=== PATIENT | female | born 1985 | race African-American/Black ===

== ENCOUNTER 2018-01-03 19:28 | Emergency (ER) | END 2018-01-03 19:44 | disposition left against medical advice (07) | LOC: ERS 19:28 | DX: Z53.21 Procedure and treatment not carried out due to patient leaving prior to being seen by health care provider (principal) ==

== ENCOUNTER 2018-01-03 20:06 | Emergency (ER) | payer SELFPAY | END 2018-01-03 21:02 | disposition home or self-care (01) | LOC: SCSER 20:06 | DX: L03.115 Cellulitis of right lower limb (principal); L02.435 Carbuncle of right lower limb; I10 Essential (primary) hypertension; J45.909 Unspecified asthma, uncomplicated | CPT/HCPCS: 99282 ==

== ENCOUNTER 2018-02-11 14:44 | Emergency (ER) | payer SELFPAY | END 2018-02-11 15:38 | disposition home or self-care (01) | LOC: ERS 14:44 | DX: M25.512 Pain in left shoulder (principal); I10 Essential (primary) hypertension; J45.909 Unspecified asthma, uncomplicated; X58.XXXA Exposure to other specified factors, initial encounter | CPT/HCPCS: 99283 ==

== ENCOUNTER 2018-02-28 20:34 | Emergency (ER) | payer MEDICAID, OTHER, SELFPAY ==
[2018-02-28] MEDS ORDERED: Ondansetron PF 4 MG/2 ML Vial ONE (21:08)
[2018-02-28] MEDS ORDERED: Dicyclomine 20 MG TAB ONE (21:08)
[2018-02-28 21:28] LABS: #Eosinphils 0.1 thou/uL (0.0-0.7); #Lymphocytes 1.9 thou/uL (1.20-3.40); #Monocytes 0.7 thou/uL (0.11-0.59); %Basophils 0.5 % (0.0-1.0); %Eosinophils 1.1 % (0.0-10.0); %Lymphocytes 22.1 % (21.0-51.0); %Monocytes 7.5 % (0.0-10.0); %Neutrophils 68.9 % (42.0-75.0); Hemoglobin 14.7 g/dL (12.0-16.0); Mean Corpuscular HGB CONC 33.3 g/dL (32.0-36.0); Mean Corpuscular Hemoglobin 28.5 pg (27.0-31.0); Mean Corpuscular Volume 85.6 fL (78.0-98.0); Mean Platelet Volume 8.8 fL (7.4-10.4); Platelet Count 335 thou/uL (130-400); RBC Distribution Width 12.7 % (11.5-14.5); Red Blood Cell (RBC) Count 5.17 mill/uL (4.20-5.40); White Blood Cell (WBC) Count 8.7 thou/uL (4.8-10.8)
[2018-02-28 21:49] LABS: ALT (SGPT) 26 U/L (8-55); AST (SGOT) 17 U/L (5-34); Albumin 4.7 g/dL (3.5-5.0); Alkaline Phosphatase 83 U/L (40-150); Anion Gap 11 mmol/L (10-20); BUN (Urea Nitrogen) 12 mg/dL (7.0-18.7); Bilirubin, Total 0.5 mg/dL (0.2-1.2); Calc. Creatinine Clearance 0 mL/min (70-130); Calcium 9.9 mg/dL (7.8-10.44); Carbon Dioxide 19 mmol/L (22-29); Chloride 107 mmol/L (98-107); Estimated GFR-MDRD 86; Globulin 4.3 g/dL (2.4-3.5); Glucose 115 mg/dL (70-105); Lipase 19 U/L (8-78); Potassium 3.9 mmol/L (3.5-5.1); Sodium 133 mmol/L (136-145)
[2018-02-28 22:24] LABS: Bilirubin Negative (Negative); Blood, Urine Small (Negative); Clarity CLEAR (Clear); Glucose, Urine (Dipstick) Negative (Negative); Leukocyte Negative (Negative); Nitrite Negative (Negative); Protein, Urine (Dipstick) 30 mg/dL (Neg-Trace); Specific Gravity, Urine 1.029 (1.002-1.036); Urobilinogen 0.2 mg/dL (0.2-1.0); pH, Urine 5.5 (5.0-9.0)
[2018-02-28 22:25] LABS: Pregnancy Test - Urine (BHCG) Negative (Negative); Pregu Control Background? CLEAR/WHITE (CLR/WHITE); Pregu Control Bar Appear? YES (CONTROL BAR); Specific Gravity 1.029 (1.002-1.036)
[2018-02-28 22:26] LABS: Bacteria/HPF None Seen HPF (None Seen); Hyaline Casts/LPF 7-10 HYALINE CAST LPF (0-3 Hyaline); Pathc Cast-AUWi Flag 1.74 (0-2.49); RBC/HPF 0-3 HPF (0-3)
--- NOTE | 2018-03-01 00:20 | RAD ---
CHEST TWO VIEWS: INDICATIONS: Chest pain. COMPARISON: None. FINDINGS: The lungs are clear. The cardiomediastinal silhouette is within normal limits. No acute osseous abn ormality is evident. IMPRESSION: No acute cardiopulmonary abnormality. POS: [facility]
--- NOTE | 2018-03-06 13:25 | EKG ---
Test Reason : Blood Pressure : / mmHG Vent. Rate : 084 BPM Atrial Rate : 084 BPM P-R Int : 146 ms QRS Dur : 080 ms QT Int : 348 ms P-R-T Axes : 061 039 014 degrees QTc Int : 411 ms Normal sinus rhythm Normal ECG Confirmed by EDIL PEPE ([id number]), editorial clerk SHARRI CERVANTES ([id number] on 03/06/2018 1:25:17 PM Referred By: Confirmed By:EDIL PEPE
== END 2018-02-28 23:43 | disposition home or self-care (01) ==
LOC: ERS 20:34
DX: R07.89 Other chest pain (principal); I10 Essential (primary) hypertension; R19.7 Diarrhea, unspecified; J45.909 Unspecified asthma, uncomplicated; R10.13 Epigastric pain; R50.9 Fever, unspecified
CPT/HCPCS: 71046; 80053; 81003; 81015; 81025; 83690; 85025; 87804; 93005; 96361; 96374; J2405

== ENCOUNTER 2018-04-09 17:19 | Emergency (ER) | payer MEDICAID ==
[2018-04-09] MEDS ORDERED: Ibuprofen 800 MG TAB ONE (18:27)
--- NOTE | 2018-04-09 19:54 | RAD ---
THREE VIEWS LEFT ANKLE: 04/09/18 COMPARISON: None. HISTORY: Twisted ankle and fell at [facility] with left ankle pain. FINDINGS: Three views of the left ankle shows no evidence of acute fracture or dislocation. Mild soft tissue sw elling is seen. No degenerative changes are present. IMPRESSION: No evidence of acute osseous abnormality. POS: [facility]
== END 2018-04-09 18:29 | disposition home or self-care (01) ==
LOC: ERS 17:19
DX: S93.402A Sprain of unspecified ligament of left ankle, initial encounter (principal); I10 Essential (primary) hypertension; W01.0XXA Fall on same level from slipping, tripping and stumbling without subsequent striking against object, initial encounter

== ENCOUNTER 2018-11-30 17:28 | Emergency (ER) | payer MEDICAID | END 2018-11-30 19:05 | disposition left against medical advice (07) | LOC: ERS 17:28 | DX: Z53.21 Procedure and treatment not carried out due to patient leaving prior to being seen by health care provider (principal) ==

== ENCOUNTER 2019-04-28 21:31 | Emergency (ER) | payer MEDICAID ==
[2019-04-28 21:53] LABS: #Basophils 0.1 thou/uL (0.0-0.2); #Eosinphils 0.4 thou/uL (0.0-0.7); #Lymphocytes 2.8 thou/uL (1.20-3.40); #Monocytes 0.4 thou/uL (0.11-0.59); #Neutrophils 4.6 thou/uL (1.40-6.50); %Lymphocytes 34.2 % (21.0-51.0); %Monocytes 4.6 % (0.0-10.0); %Neutrophils 55.2 % (42.0-75.0); Hemoglobin 13.2 g/dL (12.0-16.0); Mean Corpuscular HGB CONC 34.1 g/dL (32.0-36.0); Mean Corpuscular Hemoglobin 29.3 pg (27.0-31.0); Mean Platelet Volume 8.6 fL (7.4-10.4); Platelet Count 287 thou/uL (130-400); RBC Distribution Width 11.9 % (11.5-14.5); Red Blood Cell (RBC) Count 4.49 mill/uL (4.20-5.40); White Blood Cell (WBC) Count 8.3 thou/uL (4.8-10.8)
[2019-04-28] MEDS ORDERED: Nitroglycerin 2% Ointment 1 INCH/1 GM Packet ONE (21:53)
[2019-04-28] MEDS ORDERED: Aspirin Chewable 81 MG TAB ONE (21:53)
--- NOTE | 2019-04-28 21:58 | RAD ---
Portable chest: HISTORY: Chest pain COMPARISON: none FINDINGS: Lung linder are clear. Heart and mediastinum appear unremarkable. Vascularity is normal. Visualized osseous structures unremarkable. IMPRESSION: No acute finding
[2019-04-28 22:14] LABS: ALT (SGPT) 29 U/L (8-55); AST (SGOT) 22 U/L (5-34); Albumin 4.1 g/dL (3.5-5.0); Alkaline Phosphatase 69 U/L (40-110); Anion Gap 12 mmol/L (10-20); BUN (Urea Nitrogen) 15 mg/dL (7.0-18.7); Bilirubin, Total 0.2 mg/dL (0.2-1.2); CK (CPK) 250 U/L (29-168); Calc. Creatinine Clearance 0 mL/min (70-130); Calcium 9.6 mg/dL (7.8-10.44); Carbon Dioxide 27 mmol/L (22-29); Chloride 104 mmol/L (98-107); Estimated GFR-MDRD 71; Globulin 3.8 g/dL (2.4-3.5); Glucose 127 mg/dL (70-105); Lipase 18 U/L (8-78); Protein, Total 7.9 g/dL (6.0-8.3); Sodium 139 mmol/L (136-145)
[2019-04-29 01:05] LABS: Troponin I Less than 0.010 ng/mL (< 0.028)
== END 2019-04-29 01:15 | disposition home or self-care (01) ==
LOC: ERS 21:31
DX: R07.9 Chest pain, unspecified (principal); I10 Essential (primary) hypertension; E11.9 Type 2 diabetes mellitus without complications
CPT/HCPCS: 36415; 71045; 80053; 82550; 83690; 83880; 84484; 85025; 93005